=== PATIENT | male | born 1960 | race Hispanic/Latino ===

== ENCOUNTER 2021-12-20 09:24 | Emergency (ER) | payer MEDICARE ==
[2021-12-20 09:30] VITALS: BP 141/76
[2021-12-20] MEDS ORDERED: KETOROLAC 30 MG/1 ML INJ IM ONE (09:33)
--- NOTE | 2021-12-20 09:37 | Emergency Department Report ---
ED Extremity Problem HPI - General Chief complaint: Extremity Problem,Nontraumatic Stated complaint: left foot pain Time Seen by Provider: 12/20/21 09:33 Source: patient, EMS Mode of arrival: Wheelchair Limitations: No Limitations - History of Present Illness Initial comments: Patient presents secondary to chronic foot pain. He has vascular disease. He has been having foot pain for years. Since September he has had ongoing pain in the left leg and foot. He was told that he needs another vascular procedure. He never followed up and continue to smoke. Patient states that he is just here because he is having ongoing pain. He takes Lyrica at home. That did not help today. Other than the intensity of the pain, he has no new symptoms. There is no no fever or chills. Has no new vomiting or diarrhea. Pain is isolated to the left foot today. He states that he occasionally has pain on the right side as well. It is a constant, aching and burning pain. - Related Data Previous Rx's Medication Instructions Recorded Last Taken Type HYDROcodone/APAP 5-325 [[place] 1 each PO Q6HR PRN #10 tablet 12/20/21 Unknown Rx 5/325] Allergies Allergy/AdvReac Type Severity Reaction Status Date / Time No Known Allergies Allergy Verified 12/20/21 09:27 ED Review of Systems ROS: Stated complaint: left foot pain Other details as noted in HPI Comment: All other systems reviewed and negative Constitutional: denies: fever Eyes: denies: vision change ENT: denies: ear pain Respiratory: denies: cough Cardiovascular: denies: chest pain Endocrine: denies: unexplained weight loss Gastrointestinal: denies: abdominal pain Genitourinary: denies: dysuria Musculoskeletal: denies: back pain Skin: denies: rash Neurological: denies: headache Hematological/Lymphatic: denies: easy bruising ED Past Medical Hx - Past Medical History Hx Hypertension: Yes Additional medical history: Neuropathy, peripheral artery disease - Surgical History Additional Surgical History: Vascular bypass - Family History Family history: hypertension - Social History Smoking Status: Current Every Day Smoker (We discussed tobacco cessation) - Medications Home Medications: Home Medications Medication Instructions Recorded Confirmed Last Taken Type HYDROcodone/APAP 5-325 [[place] 1 each PO Q6HR PRN #10 tablet 12/20/21 Unknown Rx 5/325] ED Physical Exam - General Limitations: No Limitations, Other (Pulse ox noted and normal) General appearance: alert, in no apparent distress, other (Uncomfortable) - Head Head exam: Present: atraumatic, normocephalic - Eye Eye exam: Present: normal appearance, EOMI. Absent: scleral icterus - ENT ENT exam: Present: normal external ear exam - Neck Neck exam: Present: normal inspection. Absent: meningismus - Respiratory Respiratory exam: Absent: respiratory distress - Cardiovascular Cardiovascular Exam: Absent: JVD - GI/Abdominal GI/Abdominal exam: Present: soft - Extremities Exam Extremities exam: Present: normal capillary refill, other (There is a small healing ulcer to the lateral aspect of the left foot. Pulses are 1+ and symmetric bilaterally. Feet are warm to touch with brisk capillary refill) - Back Exam Back exam: Absent: CVA tenderness (R), CVA tenderness (L) - Neurological Exam Neurological exam: Present: alert, oriented X3, CN II-XII intact, abnormal gait (Antalgic) - Psychiatric Psychiatric exam: Present: normal affect, normal mood - Skin Skin exam: Present: warm, dry ED Course Vital Signs 12/20/21 09:27 Temperature 97.7 F Pulse Rate 92 H Respiratory 16 Rate Blood Pressure 141/76 [Left] O2 Sat by Pulse 99 Oximetry - Reevaluation(s) Reevaluation #1: 12/20/21 09:38 EMS was met. Old records reviewed. Patient was discharged ED Medical Decision Making - Medical Decision Making Patient presents with a chronic exacerbation of pain associated with his peripheral artery disease. He knows that he needs further operative intervention. He does not have any evidence of an ischemic limb at this point. His leg is warm. There is no calf tenderness suggestive of DVT. He has palpable pulses that are actually equal and symmetric. We have discussed his ongoing tobacco abuse. He is given analgesics and referred to vascular surgery here. Critical Care Time: No Critical care attestation.: If time is entered above; I have spent that time in minutes in the direct care of this critically ill patient, excluding procedure time. ED Disposition Clinical Impression: Chronic toe pain, left foot, Tobacco abuse Disposition: HOME / SELF CARE / HOMELESS Is pt being admited?: No Condition: Stable Instructions: Health Risks of Smoking, Steps to Quit Smoking, Chronic Pain, Adult Additional Instructions: Continue your home medications. Follow-up with vascular surgery as referred. Return for problems. Follow-up with your family doctor in addition. Prescriptions: HYDROcodone/APAP 5-325 [[place] 5/325] 1 each PO Q6HR PRN #10 tablet PRN Reason: Pain Referrals: PRIMARY CARE, [Referring] - 3-5 Days GUS JAIN MD [Staff Physician] - 3-5 Days GUS MAS MD [Staff Physician] - 3-5 Days
== END 2021-12-20 10:29 | disposition home or self-care (01) ==
LOC: ED 09:24
DX: M79.675 Pain in left toe(s) (principal); Z72.0 Tobacco use; I10 Essential (primary) hypertension
CPT/HCPCS: 96372; 99283; J1885